=== PATIENT | male | born 1955 | race Caucasian/White ===

== ENCOUNTER → 2021-04-14 | Outpatient (CLI) | payer MEDICARE, OTHER ==
[2021-04-14 19:41] LABS: Protein, Urine Quantitative 6.6 mg/dL (0.0-11.9)
[2021-04-14 19:58] LABS: Microalbumin, Urine Quant. <5.000 mg/L (0.000-20.000)
== END | disposition home or self-care (01) ==
LOC: LAB SHORT 17:26 → LAB FUT 04-10 10:20
PROVIDERS: Internal Medicine Nephrology
DX: N18.30 Chronic kidney disease, stage 3 unspecified (principal); D63.1 Anemia in chronic kidney disease; M10.9 Gout, unspecified; N25.81 Secondary hyperparathyroidism of renal origin; E55.9 Vitamin D deficiency, unspecified; D50.9 Iron deficiency anemia, unspecified; E78.00 Pure hypercholesterolemia, unspecified; D52.8 Other folate deficiency anemias; D51.8 Other vitamin B12 deficiency anemias; R94.6 Abnormal results of thyroid function studies; R94.5 Abnormal results of liver function studies; R76.9 Abnormal immunological finding in serum, unspecified
CPT/HCPCS: 81050; 82043; 82570; 84156

== ENCOUNTER → 2021-06-17 | Outpatient (CLI) | payer MEDICARE, OTHER | END | disposition home or self-care (01) | LOC: LAB SHORT 08:33 → PLD 08:33 | DX: D48.5 Neoplasm of uncertain behavior of skin (principal) | CPT/HCPCS: 88305 ==

== ENCOUNTER → 2022-11-20 | Outpatient (CLI) | payer MEDICARE, OTHER | END | disposition home or self-care (01) | LOC: LAB 08:00 → LAB SHORT 08:00 | DX: R19.7 Diarrhea, unspecified (principal); R10.84 Generalized abdominal pain | CPT/HCPCS: 87015; 87045; 87046; 87205; 87338; 87899 ==

== ENCOUNTER 2023-09-14 06:56 | Day surgery (SDC) | payer MEDICARE, OTHER ==
[2023-09-14] VITALS (12 sets, daily range): BP systolic 106–151; BP diastolic 72–91
[~2023-09-14] VITALS: Ht 165.1 cm; Wt 71.7 kg
[~2023-09-14 06:56] MED LIST: ATOMOXETINE HCL80 M1 PO; Aspir 8181 MG PO; CARV6.25 PO; GLIM4 PO; JARDIANCE25 MG PO; Lactated Ringer's 1,000 ML IV SCH; OMEP20ER PO; OZEMPIC1 MG/0.72 SC; Vitamin B Comple1 EA PO
[2023-09-14] MEDS ORDERED: propofoL 40 ML IV ONE (08:02)
[2023-09-14] MEDS ORDERED: Benzocaine Oral Spray 0.5ML UD ONE (08:03)
--- NOTE | 2023-09-14 08:20 | NUR ---
09/14/23 0820 Yousif Suarez HISTORY, CHART, MEDICATIONS AND ALLERGIES REVIEWED BEFORE START OF PROCEDURE. PATIENT CONFIRMS NPO STATUS AND AGREES WITH SCHEDULED PROCEDURE. 3-LEAD EKG REVIEWED WITH PHYSICIAN PRIOR TO START OF PROCEDURE. MONITOR INTACT WITH CONTINUOUS PULSE OXIMETRY,CAPNOGRAPHY, 3-LEAD EKG, INTERMITTENT BP. SUPPLEMENTAL O2 TO BE TITRATED THROUGHOUT PROCEDURE TO MAINTAIN O2 SATURATION ABOVE 90%. PATIENT DETERMINED TO BE ASA APPROPRIATE FOR PROPOFOL SEDATION PRIOR TO START OF PROCEDURE BY
--- NOTE | 2023-09-14 08:32 | NUR ---
PT TO DAY SURGERY STEP DOWN FROM EGD; BEDSIDE REPORT RECEIVED. PT IS AWAKE, ALERT AND ORIENTED; ABLE TO MOVE SELF IN BED. VSS. PT HAS NO COMPLAINTS AT THIS TIME.
--- NOTE | 2023-09-14 08:36 | NUR ---
PT TOLERATING PO FLUIDS
--- NOTE | 2023-09-14 08:42 | NUR ---
Discharge instructions reviewed with patient. Patient verbalizes understanding. Copy given to patient to take home. Patient States Post-Procedure ride home has been arranged.
--- NOTE | 2023-09-14 08:50 | NUR ---
Patient up to Ambulate independently. Gait steady. Discharged via wheelchair to private car for ride home.
== END 2023-09-14 08:51 | disposition home or self-care (01) ==
LOC: ORSCMMR 06:56 → ORD 08:00 → ORSCMMR 08:51
PROVIDERS: Internal Medicine Gastroenterology
PROC: 0DB48ZX Excision of Esophagogastric Junction, Via Natural or Artificial Opening Endoscopic, Diagnostic (ICD-10-PCS; principal; 2023-09-14 08:00)
DX: K21.00 Gastro-esophageal reflux disease with esophagitis, without bleeding (principal); R19.7 Diarrhea, unspecified; I25.2 Old myocardial infarction; I25.10 Atherosclerotic heart disease of native coronary artery without angina pectoris; E11.9 Type 2 diabetes mellitus without complications; K21.9 Gastro-esophageal reflux disease without esophagitis; Z87.891 Personal history of nicotine dependence; Z79.82 Long term (current) use of aspirin; Z79.85 Long-term (current) use of injectable non-insulin antidiabetic drugs; Z79.899 Other long term (current) drug therapy
CPT/HCPCS: 82947; 88305; 88312; A9270; J2704; J7120